=== PATIENT | female | born 1955 | race Caucasian/White ===

== ENCOUNTER → 2019-04-04 | Outpatient (CLI) | payer BC ==
--- NOTE | 2019-04-07 16:21 | Diagnostic Imaging Report ---
Exam: Bone mineral density study. History: Osteopenia. Comparison: None Discussion: Evaluation of the left hip, and lumbar spine was performed utilizing DEXA Hologic bone densitometer. The study is technically adequate. Left hip total bone mineral density: 0.859gm/cm2, T-score is -0.7, Z-score is 0.6. Left hip femoral neck bone mineral density: 0.830gm/cm2, T-score is -0.2, Z-score is 1.4. Lumbar spine total bone mineral density:1.049gm/cm2, T-score is0, Z-score is 1.8. Impression: 1. Normal bone mineral density of the left hip, fracture risk is not increased. 2. Normal bone mineral density of the lumbar spine, fracture risk is not increased. The BMD change versus baseline is 3.1% and the BMD change versus previous 3.1% . Least significant change (LSC) for bone mineral density as provided by food consultant is 0.023 g/cm2 for lumbar spine and 0.027 g/cm2 for total hip. 10 -year fracture risk per WHO Fracture Risk Assessment Tool (FRAX) for: Not reported because all T-scores at or above -1.0 The patient's fracture risk is compared to an age-matched control. Medical evaluation for secondary causes of low bone bone mineral density may be appropriate. Correlate clinically for the necessity and timing of the next bone mineral density study. Signed by: Dr. Braydon Fong M.D. on 04/07/2019 4:17 PM
--- NOTE | 2019-04-14 08:21 | Diagnostic Imaging Report ---
#[id number] - MGSCRBIL #BILATERAL DIGITAL SCREENING MAMMOGRAM WITH CAD: 04/04/2019 CLINICAL: Routine screening. Comparison is made to exams dated: 07/05/2016 mammogram and 07/21/2015 mammogram - [facility]. There are scattered fibroglandular elements in both breasts. Current study was also evaluated with a Computer Aided Detection (CAD) system. No significant masses, calcifications, or other findings are seen in either breast. There has been no significant interval change. IMPRESSION: NEGATIVE There is no mammographic evidence of malignancy. A 1 year screening mammogram is recommended. The patient will be notified by letter of the results. BRITTNEY FULLER M.D., mc/charlene:04/11/2019 11:27:01 Clerical Manager: Stormy NOWAK(R)(M), [facility] letter sent: Normal Exam Mammogram BI-RADS: 1 Negative
== END ==
LOC: MAMMO 13:12
PROVIDERS: ATTEND Family Medicine
DX: Z12.31 Encounter for screening mammogram for malignant neoplasm of breast (principal); Z13.820 Encounter for screening for osteoporosis
CPT/HCPCS: 77067; 77080

== ENCOUNTER → 2020-06-08 | Outpatient (CLI) | payer MEDICARE | LOC: MRI 13:43 | PROVIDERS: ATTEND Specialist | DX: M25.562 Pain in left knee (principal) ==